=== PATIENT | female | born 1965 | race Caucasian/White ===

== ENCOUNTER 2018-04-01 18:55 | Observation (INO) ==
[2018-04-01 19:48] LABS: Basophils # 0.1 K/mm3 (0-0.2); Basophils % 0.8 % (0.1-2.0); Eosinophils # 0.1 K/mm3 (0.0-0.4); Eosinophils % 1.5 % (0.1-12.0); Hematocrit 46.5 % (37.0-47.0); Hemoglobin 15.2 g/dL (12.2-16.2); Lymphocytes # 3.2 K/mm3 (0.7-4.5); Lymphocytes % 42.4 % (10-50); Mean Corpuscular HGB Conc 32.6 g/dL (31.8-35.4); Mean Corpuscular Hemoglobin 29.6 pg (27.0-31.2); Mean Corpuscular Volume 90.8 fl (81-99); Mean Platelet Volume 7.4 fl (7.4-10.4); Monocytes # 0.7 K/mm3 (0.1-1.0); Monocytes % 8.5 % (1.7-9.3); Neutrophils # 3.6 K/mm3 (1.8-7.8); Neutrophils % 46.9 % (37.0-80.0); Platelet Count 337 K/mm3 (142-424); Red Blood Count 5.12 M/mm3 (4.20-5.40); Red Cell Distribution Width 14.1 % (11.5-17.5); White Blood Count 7.6 K/mm3 (4.8-10.8)
[2018-04-01 20:00] LABS: Microscopic, Urine URINE MICROSCOPIC (MICROSCOPIC)
[2018-04-01 20:04] LABS: Appearance,Urine CLEAR (Clear); Bilirubin,Urine Negative (Negative); Blood, Urine TRACE-I (Negative); Color,Urine YELLOW (Yellow); Glucose,Urine (UA) Negative (Negative); Ketones,Urine Negative (Negative); Leukocyte Esterase,Urine TRACE (Negative); Protein,Urine Negative (Negative); Specific Gravity, Urine >= 1.030 (1.005-1.030); Urobilinogen,Urine 0.2 EU/dl (0.2)
[2018-04-01 20:04] LABS: Alanine Aminotransferase 34 U/L (12-78); Albumin Level 3.6 gm/dL (3.4-5.0); Albumin/Globulin Ratio 0.8 (1.1-1.8); Alkaline Phosphatase 118 U/L (46-116); Anion Gap 14.4 mEq/L (5-15); Aspartate Amino Transferase 17 U/L (15-37); Bilirubin,Total 0.4 mg/dL (0.2-1.0); Blood Urea Nitrogen 17 mg/dL (7-18); Calcium 8.7 mg/dL (8.5-10.1); Carbon Dioxide 25 mmol/L (21.0-32.0); Chloride 106 mmol/L (98-107); Globulin 4.4 gm/dl (1.3-3.2); Glucose 104 mg/dL (74-106); Potassium 3.4 mmoL/L (3.5-5.1); Sodium 142 mmol/L (136-145)
--- NOTE | 2018-04-01 20:15 | Emergency Department Note ---
ED Disposition Clinical Impression: Heart palpitations Chest pain Qualifiers: Chest pain type: precordial pain Qualified Code(s): R07.2 - Precordial pain Disposition: Admitted as Observation Condition on Discharge: Good Referrals: Marvel Egan MD [Primary Care Provider] - - Critical Care Critical Care Time: No Attestation: On 04/01/18, the high probability of a clinically significant, sudden or life threatening deterioration of the following system(s) required my full and direct attention, intervention and personal management. The time I documented below is in addition to time spent performing reported procedures but includes the following listed in this critical care notation. Medical Decision Making - Medical Records Medical records reviewed: Yes: I reviewed the patient's medical records. - [place] Inquiry Pt receiving controlled substance: No Vital Signs: 04/01/18 19:06 04/01/18 19:17 04/01/18 19:31 Temperature 98.6 F 98.3 F Temperature Source Oral Oral Pulse Rate [Right Brachial] 115 H 108 H 101 H Respiratory Rate 22 18 18 Blood Pressure [Right Arm] 188/107 H 147/92 H 141/71 H Blood Pressure Mean [Right Arm] 134 110 94 Blood Pressure Source [Right Arm] Automatic Cuff Automatic Cuff Automatic Cuff Blood Pressure Position [Right Arm] Sitting Supine 02 Sat by Pulse Oximetry 99 98 98 Oxygen Delivery Method Room Air Room Air Room Air 04/01/18 20:00 Temperature Temperature Source Pulse Rate [Right Brachial] 116 H Respiratory Rate 18 Blood Pressure [Right Arm] 152/92 H Blood Pressure Mean [Right Arm] 112 Blood Pressure Source [Right Arm] Automatic Cuff Blood Pressure Position [Right Arm] Supine 02 Sat by Pulse Oximetry 98 Oxygen Delivery Method Room Air - Lab Data Lab results reviewed: Yes: I reviewed the patient's lab results. Lab Results 04/01/18 19:38: Sodium 142, Potassium 3.4 L, Chloride 106, Carbon Dioxide 25, Anion Gap 14.4, BUN 17, Creatinine 0.83, Estimated Creat Clear 122, Estimated GFR 73, Est GFR ( Amer) 88, Glucose 104, Calcium 8.7, Total Bilirubin 0.4, AST 17, ALT 34, Alkaline Phosphatase 118 H, Troponin I < 0.02, Total Protein 8.0, Albumin 3.6, Globulin 4.4 H, Albumin/Globulin Ratio 0.8 L 04/01/18 19:38: WBC 7.6, RBC 5.12, Hgb 15.2, Hct 46.5, MCV 90.8, MCH 29.6, MCHC 32.6, RDW 14.1, Plt Count 337, MPV 7.4, Neut % (Auto) 46.9, Lymph % (Auto) 42.4, [place] % (Auto) 8.5, Eos % (Auto) 1.5, Baso % (Auto) 0.8, Neut # (Auto) 3.6, Lymph # (Auto) 3.2, [place] # (Auto) 0.7, Eos # (Auto) 0.1, Baso # (Auto) 0.1 04/01/18 19:56: Urine Color Yellow, Urine Appearance Clear, Urine pH 6.0, Ur Specific [place] >= 1.030, Urine Protein Negative, Urine Glucose (UA) Negative, Urine Ketones Negative, Urine Blood Trace-i, Urine Nitrate Negative, Urine Bilirubin Negative, Urine Urobilinogen 0.2, Ur Leukocyte Esterase Trace, Urine RBC Occasional, Urine WBC 20-50, Ur Squamous Epith Cells 20-50, Urine Bacteria 4+ Result diagrams: 04/01/18 19:38 04/01/18 19:38 Orders (Tests/Meds): ED MEDICATIONS Discontinued Medications Generic Name Dose Route Start Last Admin Trade Name Noel PRN Reason Stop Dose Admin Aspirin 324 mg 04/01/18 20:09 04/01/18 20:12 Aspirin 81mg Chewable Tablet PO 04/01/18 20:10 324 mg ONCE ONE Administration ORDERS Category Date Time Status XR chest 2V Stat Exams 04/01/18 19:31 Taken T4 (Thyroxine) Stat Lab 04/01/18 20:21 Ordered TSH [Thyroid Stimulating Hormone] Stat Lab 04/01/18 20:22 Ordered Urinalysis and Microscopic Stat Lab 04/01/18 19:56 Ordered Urine Culture Stat Micro 04/01/18 19:56 Received ECG Request by /Gopal Stat Y 04/01/18 19:30 Ordered - Radiology Data #1 Image(s): Chest Image Reviewed: Yes I reviewed the patient's radiology image Preliminary Findings: Normal/NAD - ECG Data Tracing #1 I reviewed this ECG and interpreted as documented below: Normal Sinus Rhythm: Yes Ischemic changes: non-specific ST-T wave changes - Physician Consults Physician Consulted: tiffany Reason -: Admission Chest Pain HPI - General Chief Complaint: Chest Pain Stated Complaint: Irregular Heart Rate Time Seen by Provider: 04/01/18 20:00 Mode of Arrival: Ambulatory Source of Information: Patient Limitations: No Limitations Description of Symptoms (Recalled from ER Triage Doc. by RN): Pt states she has been having chest tightness, thought she was going to pass out. 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 She states this started this morning, by lunch she was better and then this evening starting having chest tightness again. She called her PCP and was told to go to [facility]. She states a mild SOA but denies any cough, recent cold, fever or other symptoms. - History of Present Illness HPI narrative: pt with chest tightness and palpitation today with feeling of irreg and near syncope - MD complaint: chest pain indicative of cardiac Onset (ago): hour(s) Duration: now resolved Pain location: substernal Severity: moderate Quality: tightness Risk Factors for CAD: Hypertension, Hypercholesterolemia, Family Hx of CAD Treatments prior to or on arrival for Cardiac Chest Pain: beta blockers - ALYSSA Score Non-Stemi Age of patient: Less than 65 yrs Number of risk factors for CAD: Presence of 3 or more Prior coronary artery stenosis(seen in coronary angiography): Less than 50% ST-Segment deviation on ECG (more than 1 min): Absent Prior aspirin intake: No ASA in the last 7 days Severe anginal chest pain: No or one episode in last 24 hours Elevated cardiac markers(CK-MB or troponin): Absent Non-Stemi Risk Score: 1 - Related Data On Oral Contraceptives: No Home Medications Medication Instructions Recorded Confirmed Amlodipine Besylate 10 mg PO DAILY 02/27/18 04/01/18 Metoprolol Succinate [Metoprolol 100 mg PO DAILY 02/27/18 04/01/18 Succinate 200mg Tablet] paroxetine 40 mg tablet 40 mg PO DAILY 02/27/18 04/01/18 Lisinopril [Lisinopril 10mg Tab] 10 mg PO DAILY 04/01/18 04/01/18 Allergies Allergy/AdvReac Type Severity Reaction Status Date / Time oxycodone [From PERCOCET] Allergy Intermediate I-ITCHING Verified 02/27/18 17:47 cyclobenzaprine Allergy Verified 04/01/18 19:26 [From Flexeril] [facility] History I have reviewed the patient's past medical history: Yes - Social History Alcohol Intake: never - Psychiatric History Expresses thoughts of harming self/others: None Suicide Plan Description: No Plan ROS Obtained: Yes All systems reviewed & no additional complaints - Constitutional Constitutional: Denies fever(s) - Eyes Eyes: Denies change in vision - ENT Ears, Nose, Mouth, and Throat: Denies headache(s) - Cardiovascular Cardiovascular: Reports chest pain, Reports irregular heart rhythm, Reports rapid heart rate - Respiratory Respiratory: No cough - Gastrointestinal Gastrointestingal: Denies: abdominal pain - Genitourinary Female Genitourinary: Denies hematuria - Musculoskeletal Musculoskeletal: Denies joint swelling - Integumentary/Breasts Skin/Breast: Denies rash - Neurologic Neurologic: Denies seizure-like activity Physical Exam - General General appearance: alert - Head Head exam: normocephalic - Eye Eye exam: Present: PERRL, EOMI - ENT ENT exam: Present: mucous membranes moist - Neck Neck exam: Present: trachea midline - Respiratory Respiratory exam: Present: normal lung sounds bilaterally. Absent: respiratory distress - Cardiovascular Cardiovascular exam: Present: tachycardia, systolic murmur - Abdominal Exam Abdominal exam: Present: soft - Extremities Exam Extremities exam: Absent: calf tenderness - Neurological Exam Neurological exam: Present: alert, oriented X3, CN II-XII intact - Psychiatric Psychiatric exam: Present: normal affect - Skin Skin exam: Absent: rash
[2018-04-01 20:24] LABS: WBC,Urine 20-50 #/hpf (0-3)
[2018-04-01 20:25] LABS: Bacteria,Urine 4+ /lpf; RBC,Urine Occasional #/hpf (0-3); Squamous Epithelial Cell,Urine 20-50 #/hpf (0-5)
[2018-04-01 20:58] LABS: T4 (Thyroxine) 8.6 ug/dl (4.7-13.3); Thyroid Stimulating Hormone 2.32 uIU/ml (0.358-3.740)
[2018-04-02 05:55] LABS: Basophils # 0.1 K/mm3 (0-0.2); Basophils % 0.9 % (0.1-2.0); Eosinophils # 0.1 K/mm3 (0.0-0.4); Eosinophils % 2.1 % (0.1-12.0); Hematocrit 40.7 % (37.0-47.0); Lymphocytes # 2.6 K/mm3 (0.7-4.5); Lymphocytes % 42.9 % (10-50); Mean Corpuscular HGB Conc 31.7 g/dL (31.8-35.4); Mean Corpuscular Hemoglobin 28.8 pg (27.0-31.2); Mean Corpuscular Volume 90.8 fl (81-99); Mean Platelet Volume 7.6 fl (7.4-10.4); Monocytes # 0.5 K/mm3 (0.1-1.0); Monocytes % 8.1 % (1.7-9.3); Neutrophils # 2.8 K/mm3 (1.8-7.8); Platelet Count 269 K/mm3 (142-424); Red Blood Count 4.49 M/mm3 (4.20-5.40); Red Cell Distribution Width 14.1 % (11.5-17.5); White Blood Count 6.2 K/mm3 (4.8-10.8)
[2018-04-02 06:08] LABS: Anion Gap 13.4 mEq/L (5-15); Calcium 8.2 mg/dL (8.5-10.1); Chol/HDL Ratio 3.6 (1-3.5); Potassium 3.4 mmoL/L (3.5-5.1)
[2018-04-02 06:28] LABS: Hemoglobin 12.9 g/dL (12.2-16.2)
--- NOTE | 2018-04-02 07:40 | Pharmacy Consult Notes ---
[facility] Pharmacy VTE Monitoring - Patient Demographics Admission date: 04/01/18 Report Date: 04/02/18 Time: 07:40 Allergies/Adverse Reactions: Patient Allergies oxycodone [From PERCOCET] Allergy (Intermediate, Verified 02/27/18 17:47) I-ITCHING cyclobenzaprine [From Flexeril] Allergy (Verified 04/01/18 19:26) Height: 1.61 m Weight: 99.904 kg Patient Problems: Current Active Problems Chest pain (Acute) Heart palpitations (Acute) - VTE Risk Labs: VTE Related Lab Results Hgb 12.9 g/dL (12.2-16.2) D 04/02/18 05:30 Hct 40.7 % (37.0-47.0) 04/02/18 05:30 Plt Count 269 K/mm3 (142-424) 04/02/18 05:30 BUN 15 mg/dL (7-18) 04/02/18 05:30 Creatinine 0.71 mg/dL (0.55-1.02) 04/02/18 05:30 Estimated Creat Clear 150 mL/min (50-200) 04/02/18 05:30 Was VTE Risk Assessment Performed: No VTE Score: 2 VTE Risk Level: Low Risk - Prophylaxis VTE Prophylaxis Ordered?: Yes Types of VTE Prophylaxis: TEDS Knee High Location of Applied Device: Bilateral Lower Extremeties - VTE Diagnosis Confirmed Treatment or plan recommended: Continue Current Treatment
--- NOTE | 2018-04-02 07:55 | Consult Report ---
History of Present Illness Consult date: 04/02/18 Requesting physician: Marvel Egan Consult reason: chest pain Chief complaint: Chest pain, palpitations Additional Medical History:: 1. Hypertension 2. Remote history of normal cardiac catheterization approximately 10 years ago 3. Family history of coronary artery disease in her father. History of present illness: 52-year-old white female with history of hypertension was admitted for chest pain with SVT. Patient relates not feeling well yesterday at work with coworkers checking her heart rate and noting it to be in the 130-140 bpm range. Blood pressure noted to be slightly low. Patient did have some chest pressure and tightness when the heart rate was at fast. When the rate would slow down symptoms would resolve. She did have several episodes of rapid heart rate with chest pressure yesterday. She denies any syncope but does note that a lightheaded and dizzy at times. When symptoms recurred in the evening she came to the emergency department for further evaluation and was subsequently admitted. EKG shows sinus tachycardia with some nonspecific ST-T abnormalities. Patient had troponins overnight there were normal. Thyroid panel is normal. Cardiology consulted for evaluation recommendations. Patient does take 200 mg of Lopressor daily for blood pressure and heart rate control and denies missing any doses recently. Patient does relate a 30-40 pound weight gain over the last 6 months. [facility] History Medical History: Reports:: Hypertension Denies:: Cancer, Diabetes Mellitus Type 1, Diabetes Mellitus Type 2, Internal Pacemaker, MRSA Other Surgeries: Yes: Cardiac Catheterization. No: Pacemaker Amputation: No - *Social History Educational Level: Completed College Alcohol Intake: never Occupational Status: employed Housing: house Household Members: spouse, children - Psychiatric History Expresses thoughts of harming self/others: None Suicide Plan Description: No Plan *Family Hx:: Coronary Artery Disease Meds Home Medications Medication Instructions Recorded Confirmed Type Amlodipine Besylate 10 mg PO DAILY 02/27/18 04/01/18 History Metoprolol Succinate [Metoprolol 100 mg PO DAILY 02/27/18 04/02/18 History Succinate 200mg Tablet] paroxetine 40 mg tablet 40 mg PO DAILY 02/27/18 04/01/18 History Lisinopril [Lisinopril 10mg Tab] 10 mg PO DAILY 04/01/18 04/02/18 History Allergies Allergy/AdvReac Type Severity Reaction Status Date / Time oxycodone [From PERCOCET] Allergy Intermediate I-ITCHING Verified 02/27/18 17:47 cyclobenzaprine Allergy Verified 04/01/18 19:26 [From Flexeril] Review of Systems - *Cardiovascular Reports chest pain, Reports rapid, pounding, or irregular heartbeat - *Respiratory Denies shortness of breath - *Gastrointestinal Denies abdominal pain - *Genitourinary Denies blood in urine - *Musculoskeletal Denies joint pain - *Neurologic Denies headache(s), Denies seizure-like activity Exam Vital signs and Labs for Last 24 Hours: Temp Pulse Resp BP Pulse Ox 98.2 F 95 H 17 137/89 96 04/02/18 04:00 04/02/18 04:00 04/02/18 04:00 04/02/18 04:00 04/02/18 04:00 Laboratory Results - last 24 hr 04/01/18 19:38: Sodium 142, Potassium 3.4 L, Chloride 106, Carbon Dioxide 25, Anion Gap 14.4, BUN 17, Creatinine 0.83, Estimated Creat Clear 122, Estimated GFR 73, Est GFR ( Amer) 88, Glucose 104, Calcium 8.7, Total Bilirubin 0.4, AST 17, ALT 34, Alkaline Phosphatase 118 H, Troponin I < 0.02, Total Protein 8.0, Albumin 3.6, Globulin 4.4 H, Albumin/Globulin Ratio 0.8 L 04/01/18 19:38: WBC 7.6, RBC 5.12, Hgb 15.2, Hct 46.5, MCV 90.8, MCH 29.6, MCHC 32.6, RDW 14.1, Plt Count 337, MPV 7.4, Neut % (Auto) 46.9, Lymph % (Auto) 42.4, [place] % (Auto) 8.5, Eos % (Auto) 1.5, Baso % (Auto) 0.8, Neut # (Auto) 3.6, Lymph # (Auto) 3.2, [place] # (Auto) 0.7, Eos # (Auto) 0.1, Baso # (Auto) 0.1 04/01/18 19:38: TSH 2.32, Thyroxine (T4) 8.6 04/01/18 19:56: Urine Color Yellow, Urine Appearance Clear, Urine pH 6.0, Ur Specific [place] >= 1.030, Urine Protein Negative, Urine Glucose (UA) Negative, Urine Ketones Negative, Urine Blood Trace-i, Urine Nitrate Negative, Urine Bilirubin Negative, Urine Urobilinogen 0.2, Ur Leukocyte Esterase Trace, Urine RBC Occasional, Urine WBC 20-50, Ur Squamous Epith Cells 20-50, Urine Bacteria 4+ 04/01/18 23:15: Troponin I < 0.02 04/02/18 02:40: Troponin I < 0.02 04/02/18 05:30: WBC 6.2, RBC 4.49, Hgb 12.9 D, Hct 40.7, MCV 90.8, MCH 28.8, MCHC 31.7 L, RDW 14.1, Plt Count 269, MPV 7.6, Neut % (Auto) 46.0, Lymph % (Auto) 42.9, [place] % (Auto) 8.1, Eos % (Auto) 2.1, Baso % (Auto) 0.9, Neut # (Auto) 2.8, Lymph # (Auto) 2.6, [place] # (Auto) 0.5, Eos # (Auto) 0.1, Baso # (Auto) 0.1 04/02/18 05:30: Sodium 143, Potassium 3.4 L, Chloride 109 H, Carbon Dioxide 24, Anion Gap 13.4, BUN 15, Creatinine 0.71, Estimated Creat Clear 150, Estimated GFR 87, Est GFR ( Amer) 105, Glucose 95, Calcium 8.2 L, Magnesium 2.1, Triglycerides 50, Cholesterol 159, LDL Cholesterol 105, VLDL Cholesterol 10, HDL Cholesterol 44, Cholesterol/HDL Ratio 3.6 H I & O for Last 24 hours: Intake & Output 03/30/18 03/31/18 04/01/18 04/02/18 11:59 11:59 11:59 11:59 Weight 220 lb 4 oz - *Routine Neck Exam Present: supple. Absent: JVD, carotid bruit - *Routine Respiratory Exam Present: CTA bilaterally. Absent: accessory muscle use, rales, rhonchi, wheezes - *Routine Cardiovascular Exam Present: RRR. Absent: murmur, gallop, rubs - *Routine Abdominal Exam Present: soft. Absent: tenderness, distended, guarding - *Routine Extremities Exam Absent: edema, calf tenderness - *Routine Neurological Exam Present: alert, oriented X3, moving all extremities Assessment and Plan (1) Hypertension Current visit: Yes Status: Acute Category: Medical Code(s): I10 - Essential (primary) hypertension (2) Obesity (BMI 30-39.9) Current visit: Yes Status: Acute Category: Medical Code(s): E66.9 - Obesity, unspecified (3) Chest pain Current visit: Yes Status: Acute Qualifiers: Chest pain type: precordial pain Qualified Code(s): R07.2 - Precordial pain Category: Medical Code(s): R07.9 - Chest pain, unspecified (4) Heart palpitations Current visit: Yes Status: Acute Category: Medical Code(s): R00.2 - Palpitations - Assessment and plan all Dx Assessment and Plan for all problems:: 1. Recurrent chest pain with normal troponins and sinus tachycardia versus SVT. Patient has a ALYSSA score of 1 (recurrent chest pain) with history of hypertension. Recommend exercise Myoview today to assess for exercise-induced SVT (looking for atrial fibrillation) and to assess for coronary artery disease also. If atrial fibrillation documented, then recommend Xarelto or other anticoagulant therapy. 2. Also recommend obtaining an echocardiogram. 3. Consider switching her Lopressor to bisoprolol 10 mg daily for less fatigue side effect. 4. Further recommendations pending above results but if stress test is without ischemia then patient could be treated as an outpatient.
--- NOTE | 2018-04-02 09:07 | History & Physical Report ---
*Admission Date: 04/01/18 <Julia Sánchez 04/02/18 09:17> *Chief complaint: Rapid heart rate <Julia Sánchez 04/02/18 09:17> *History of present illness: 52-year-old white female with history of hypertension was admitted for chest pain with SVT. Patient relates not feeling well yesterday at work with coworkers checking her heart rate and noting it to be in the 130-140 bpm range. Blood pressure noted to be slightly low. Patient did have some chest pressure and tightness when the heart rate was at fast. When the rate would slow down symptoms would resolve. She did have several episodes of rapid heart rate with chest pressure yesterday. She denies any syncope but does note that a lightheaded and dizzy at times. When symptoms recurred in the evening she came to the emergency department for further evaluation and was subsequently admitted. EKG shows sinus tachycardia with some nonspecific ST-T abnormalities. Patient had troponins overnight there were normal. Thyroid panel is normal. Cardiology consulted for evaluation recommendations. Patient does take 200 mg of Lopressor daily for blood pressure and heart rate control and denies missing any doses recently. Patient does relate a 30-40 pound weight gain over the last 6 months. The above as per Italo Adams PA Time of this exam patient is comfortable. She feels her heart is beating regularly and under control. She is n.p.o. for stress test this morning. <Julia Sánchez 04/02/18 09:17> [facility] History Medical History: Reports:: Arrhythmia, Gastroesophageal Reflux Disease(GERD), Hypertension, Palpitations Denies:: Atherosclerotic Heart Disease, Atrial Fibrillation, Cancer, Cardiomyopathy, Congestive Heart Failure, Chronic Obstructive Pulmonary Disease (COPD), Coronary Artery Disease, Diabetes Mellitus Type 1, Diabetes Mellitus Type 2, Gastrointestinal Bleed, Internal Pacemaker, Lung Disease, Kidney Stones, MRSA, Myocardial Infarction, Seizures <Julia Sánchez 04/02/18 09:17> Other Medical History: Reports: Arthritis. Denies: Hypothyroidism <PrincessJulia 04/02/18 09:17> Other Surgeries: Yes: Cardiac Catheterization, Tubal Ligation. No: Pacemaker <Julia Sánchez 04/02/18 09:17> Amputation: No <Julia Sánchez 04/02/18 09:17> Comment: Breast augmentation <Julia Sánchez 04/02/18 09:17> - *Social History Educational Level: Completed College <Julia Sánchez 04/02/18 09:17> Alcohol Intake: never <Julia Sánchez 04/02/18 09:17> Occupational Status: employed <Julia Sánchez 04/02/18 09:17> Housing: house <Julia Sánchez 04/02/18 09:17> Household Members: spouse, children <Julia Sánchez 04/02/18 09:17> - Psychiatric History Expresses thoughts of harming self/others: None <Julia Sánchez 04/02/18 09:17> Suicide Plan Description: No Plan <Julia Sánchez 04/02/18 09:17> *Family Hx:: Coronary Artery Disease, Hypertension <Julia Sánchez 04/02/18 09:17> Review of Systems - Constitutional Reports weight gain, Denies chills <Edna Sánchezhy 04/02/18 09:17> - ENT Reports dizziness, Denies ear pain, Denies nasal congestion, Denies sore throat <Edna Sánchezhy 04/02/18 09:17> - *Cardiovascular Reports chest pain, Reports shortness of breath, Reports irregular heart rhythm, Reports fast heart rate, Denies leg swelling <Edna Sánchezhy 04/02/18 09:17> - *Respiratory Reports shortness of breath, Denies chest congestion, Denies cough <Edna Sánchezhy 04/02/18 09:17> - *Gastrointestinal Reports heartburn, Denies abdominal pain, Denies change in bowel habits, Denies change in stools, Denies constipation, Denies incontinent of stools, Denies vomiting blood, Denies black, tarry stools <[facility] 04/02/18 09:17> - *Genitourinary Denies difficulty urinating <[facility] 04/02/18 09:17> - *Musculoskeletal Reports joint pain (Bilateral knees and hips) <SánchezJulia - 04/02/18 09:17> - *Neurologic Reports dizziness, Denies abnormal walking, Denies seizure-like activity, Denies headache(s), Denies seizure-like activity <Julia Sánchez - 04/02/18 09:17> - Psychiatric Reports depression <Julia Sánchez - 04/02/18 09:17> Meds Home Medications Medication Instructions Recorded Confirmed Type Amlodipine Besylate 10 mg PO DAILY 02/27/18 04/01/18 History Metoprolol Succinate [Metoprolol 100 mg PO DAILY 02/27/18 04/02/18 History Succinate 200mg Tablet] paroxetine 40 mg tablet 40 mg PO DAILY 02/27/18 04/01/18 History Lisinopril [Lisinopril 10mg Tab] 10 mg PO DAILY 04/01/18 04/02/18 History <Marvel Egan - 04/02/18 09:26> Allergies Allergy/AdvReac Type Severity Reaction Status Date / Time oxycodone [From PERCOCET] Allergy Intermediate I-ITCHING Verified 02/27/18 17:47 cyclobenzaprine Allergy Verified 04/01/18 19:26 [From Flexeril] <Marvel Egan - 04/02/18 09:26> Exam Vital signs and Labs for Last 24 Hours: Temp Pulse Resp BP Pulse Ox 98.2 F 104 H 16 138/80 98 04/02/18 08:00 04/02/18 08:00 04/02/18 08:00 04/02/18 08:00 04/02/18 08:00 Laboratory Results - last 24 hr 04/01/18 19:38: Sodium 142, Potassium 3.4 L, Chloride 106, Carbon Dioxide 25, Anion Gap 14.4, BUN 17, Creatinine 0.83, Estimated Creat Clear 122, Estimated GFR 73, Est GFR ( Amer) 88, Glucose 104, Calcium 8.7, Total Bilirubin 0.4, AST 17, ALT 34, Alkaline Phosphatase 118 H, Troponin I < 0.02, Total Protein 8.0, Albumin 3.6, Globulin 4.4 H, Albumin/Globulin Ratio 0.8 L 04/01/18 19:38: WBC 7.6, RBC 5.12, Hgb 15.2, Hct 46.5, MCV 90.8, MCH 29.6, MCHC 32.6, RDW 14.1, Plt Count 337, MPV 7.4, Neut % (Auto) 46.9, Lymph % (Auto) 42.4, [place] % (Auto) 8.5, Eos % (Auto) 1.5, Baso % (Auto) 0.8, Neut # (Auto) 3.6, Lymph # (Auto) 3.2, [place] # (Auto) 0.7, Eos # (Auto) 0.1, Baso # (Auto) 0.1 04/01/18 19:38: TSH 2.32, Thyroxine (T4) 8.6 04/01/18 19:56: Urine Color Yellow, Urine Appearance Clear, Urine pH 6.0, Ur Specific [place] >= 1.030, Urine Protein Negative, Urine Glucose (UA) Negative, Urine Ketones Negative, Urine Blood Trace-i, Urine Nitrate Negative, Urine Bilirubin Negative, Urine Urobilinogen 0.2, Ur Leukocyte Esterase Trace, Urine RBC Occasional, Urine WBC 20-50, Ur Squamous Epith Cells 20-50, Urine Bacteria 4+ 04/01/18 23:15: Troponin I < 0.02 04/02/18 02:40: Troponin I < 0.02 04/02/18 05:30: WBC 6.2, RBC 4.49, Hgb 12.9 D, Hct 40.7, MCV 90.8, MCH 28.8, MCHC 31.7 L, RDW 14.1, Plt Count 269, MPV 7.6, Neut % (Auto) 46.0, Lymph % (Auto) 42.9, [place] % (Auto) 8.1, Eos % (Auto) 2.1, Baso % (Auto) 0.9, Neut # (Auto) 2.8, Lymph # (Auto) 2.6, [place] # (Auto) 0.5, Eos # (Auto) 0.1, Baso # (Auto) 0.1 04/02/18 05:30: Sodium 143, Potassium 3.4 L, Chloride 109 H, Carbon Dioxide 24, Anion Gap 13.4, BUN 15, Creatinine 0.71, Estimated Creat Clear 150, Estimated GFR 87, Est GFR ( Amer) 105, Glucose 95, Calcium 8.2 L, Magnesium 2.1, Triglycerides 50, Cholesterol 159, LDL Cholesterol 105, VLDL Cholesterol 10, HDL Cholesterol 44, Cholesterol/HDL Ratio 3.6 H <JulisaMarvel - 04/02/18 09:26> Temp Pulse Resp BP Pulse Ox 98.2 F 104 H 16 138/80 98 04/02/18 08:00 04/02/18 08:00 04/02/18 08:00 04/02/18 08:00 04/02/18 08:00 Laboratory Results - last 24 hr 04/01/18 19:38: Sodium 142, Potassium 3.4 L, Chloride 106, Carbon Dioxide 25, Anion Gap 14.4, BUN 17, Creatinine 0.83, Estimated Creat Clear 122, Estimated GFR 73, Est GFR ( Amer) 88, Glucose 104, Calcium 8.7, Total Bilirubin 0.4, AST 17, ALT 34, Alkaline Phosphatase 118 H, Troponin I < 0.02, Total Protein 8.0, Albumin 3.6, Globulin 4.4 H, Albumin/Globulin Ratio 0.8 L 04/01/18 19:38: WBC 7.6, RBC 5.12, Hgb 15.2, Hct 46.5, MCV 90.8, MCH 29.6, MCHC 32.6, RDW 14.1, Plt Count 337, MPV 7.4, Neut % (Auto) 46.9, Lymph % (Auto) 42.4, [place] % (Auto) 8.5, Eos % (Auto) 1.5, Baso % (Auto) 0.8, Neut # (Auto) 3.6, Lymph # (Auto) 3.2, [place] # (Auto) 0.7, Eos # (Auto) 0.1, Baso # (Auto) 0.1 04/01/18 19:38: TSH 2.32, Thyroxine (T4) 8.6 04/01/18 19:56: Urine Color Yellow, Urine Appearance Clear, Urine pH 6.0, Ur Specific [place] >= 1.030, Urine Protein Negative, Urine Glucose (UA) Negative, Urine Ketones Negative, Urine Blood Trace-i, Urine Nitrate Negative, Urine Bilirubin Negative, Urine Urobilinogen 0.2, Ur Leukocyte Esterase Trace, Urine RBC Occasional, Urine WBC 20-50, Ur Squamous Epith Cells 20-50, Urine Bacteria 4+ 04/01/18 23:15: Troponin I < 0.02 04/02/18 02:40: Troponin I < 0.02 04/02/18 05:30: WBC 6.2, RBC 4.49, Hgb 12.9 D, Hct 40.7, MCV 90.8, MCH 28.8, MCHC 31.7 L, RDW 14.1, Plt Count 269, MPV 7.6, Neut % (Auto) 46.0, Lymph % (Auto) 42.9, [place] % (Auto) 8.1, Eos % (Auto) 2.1, Baso % (Auto) 0.9, Neut # (Auto) 2.8, Lymph # (Auto) 2.6, [place] # (Auto) 0.5, Eos # (Auto) 0.1, Baso # (Auto) 0.1 04/02/18 05:30: Sodium 143, Potassium 3.4 L, Chloride 109 H, Carbon Dioxide 24, Anion Gap 13.4, BUN 15, Creatinine 0.71, Estimated Creat Clear 150, Estimated GFR 87, Est GFR ( Amer) 105, Glucose 95, Calcium 8.2 L, Magnesium 2.1, Triglycerides 50, Cholesterol 159, LDL Cholesterol 105, VLDL Cholesterol 10, HDL Cholesterol 44, Cholesterol/HDL Ratio 3.6 H <Julia Sánchez - 04/02/18 09:17> I & O for Last 24 hours: Intake & Output 03/30/18 03/31/18 04/01/18 04/02/18 11:59 11:59 11:59 11:59 Weight 220 lb 4 oz <Wright,Marvel - 04/02/18 09:26> Intake & Output 03/30/18 03/31/18 04/01/18 04/02/18 11:59 11:59 11:59 11:59 Weight 220 lb 4 oz <Julia Sánchez - 04/02/18 09:17> Radiology Reports for the Last 24 Hours: 04/01/2018 chest x-ray IMPRESSION: Negative chest, no acute finding <Julia Sánchez 04/02/18 09:17> - Constitutional no acute distress <Julia Sánchez 04/02/18 09:17> Comments: Sitting up in the bed and appears comfortable. Breathing is easy. <Julia Sánchez 04/02/18 09:17> - *Routine HEENT Exam Head: Present: normocephalic, atraumatic <Julia Sánchez 04/02/18 09:17> Eye: Present: PERRL <Julia Sánchez 04/02/18 09:17> ENT: Present: mucous membranes moist, oropharynx clear <[facility] 04/02/18 09:17> - *Routine Neck Exam Present: supple. Absent: carotid bruit, lymphadenopathy, thyromegaly <Julia Sánchez 04/02/18 09:17> - *Routine Respiratory Exam Present: CTA bilaterally (Anteriorly and posteriorly) <[facility] 04/02/18 09:17> - *Routine Cardiovascular Exam Present: RRR [facility] 04/02/18 09:17> Comments: Sinus rhythm on monitor <[facility] 04/02/18 09:17> - *Routine Abdominal Exam Present: soft, normoactive bowel sounds. Absent: tenderness, distended <[facility] 04/02/18 09:17> - *Routine Extremities Exam Present: pulses intact. Absent: edema, calf tenderness <[facility] 04/02/18 09:17> - *Routine Neurological Exam Present: alert, oriented X3 <Sánchez,[facility] 04/02/18 09:17> Assessment and Plan (1) Hypertension Current visit: Yes Status: Acute Category: Medical Code(s): I10 - Essential (primary) hypertension (2) Obesity (BMI 30-39.9) Current visit: Yes Status: Acute Category: Medical Code(s): E66.9 - Obesity, unspecified (3) Chest pain Current visit: Yes Status: Acute Qualifiers: Chest pain type: precordial pain Qualified Code(s): R07.2 - Precordial pain Category: Medical Code(s): R07.9 - Chest pain, unspecified (4) Heart palpitations Current visit: Yes Status: Acute Category: Medical Code(s): R00.2 - Palpitations <WrightMarvel - 04/02/18 09:26> (1) Hypertension Current visit: Yes Status: Acute Category: Medical Code(s): I10 - Essential (primary) hypertension (2) Obesity (BMI 30-39.9) Current visit: Yes Status: Acute Category: Medical Code(s): E66.9 - Obesity, unspecified (3) Chest pain Current visit: Yes Status: Acute Qualifiers: Chest pain type: precordial pain Qualified Code(s): R07.2 - Precordial pain Category: Medical Code(s): R07.9 - Chest pain, unspecified (4) Heart palpitations Current visit: Yes Status: Acute Category: Medical Code(s): R00.2 - Palpitations <Julia Sánchez - 04/02/18 09:03> - Assessment and plan all Dx Assessment and Plan for all problems:: Saw patient, agree with above note. <Marvel Egan - 04/02/18 09:26> Patient has been seen by cardiology and will have a stress test this morning. <Julia Sánchez - 04/02/18 09:17>
--- NOTE | 2018-04-02 17:02 | Progress Note ---
Internal Medicine - PN: Subj *Date: 04/02/18 *Time: 17:00 Interval history: Patient feels well, had stress test, wants to go home. Exam Vital signs and Labs for Last 24 Hours: Temp Pulse Resp BP Pulse Ox 97.8 F 82 20 139/90 97 04/02/18 15:46 04/02/18 15:46 04/02/18 15:46 04/02/18 15:46 04/02/18 15:46 Laboratory Results - last 24 hr 04/01/18 19:38: Sodium 142, Potassium 3.4 L, Chloride 106, Carbon Dioxide 25, Anion Gap 14.4, BUN 17, Creatinine 0.83, Estimated Creat Clear 122, Estimated GFR 73, Est GFR ( Amer) 88, Glucose 104, Calcium 8.7, Total Bilirubin 0.4, AST 17, ALT 34, Alkaline Phosphatase 118 H, Troponin I < 0.02, Total Protein 8.0, Albumin 3.6, Globulin 4.4 H, Albumin/Globulin Ratio 0.8 L 04/01/18 19:38: WBC 7.6, RBC 5.12, Hgb 15.2, Hct 46.5, MCV 90.8, MCH 29.6, MCHC 32.6, RDW 14.1, Plt Count 337, MPV 7.4, Neut % (Auto) 46.9, Lymph % (Auto) 42.4, [place] % (Auto) 8.5, Eos % (Auto) 1.5, Baso % (Auto) 0.8, Neut # (Auto) 3.6, Lymph # (Auto) 3.2, [place] # (Auto) 0.7, Eos # (Auto) 0.1, Baso # (Auto) 0.1 04/01/18 19:38: TSH 2.32, Thyroxine (T4) 8.6 04/01/18 19:56: Urine Color Yellow, Urine Appearance Clear, Urine pH 6.0, Ur Specific [place] >= 1.030, Urine Protein Negative, Urine Glucose (UA) Negative, Urine Ketones Negative, Urine Blood Trace-i, Urine Nitrate Negative, Urine Bilirubin Negative, Urine Urobilinogen 0.2, Ur Leukocyte Esterase Trace, Urine RBC Occasional, Urine WBC 20-50, Ur Squamous Epith Cells 20-50, Urine Bacteria 4+ 04/01/18 23:15: Troponin I < 0.02 04/02/18 02:40: Troponin I < 0.02 04/02/18 05:30: WBC 6.2, RBC 4.49, Hgb 12.9 D, Hct 40.7, MCV 90.8, MCH 28.8, MCHC 31.7 L, RDW 14.1, Plt Count 269, MPV 7.6, Neut % (Auto) 46.0, Lymph % (Auto) 42.9, [place] % (Auto) 8.1, Eos % (Auto) 2.1, Baso % (Auto) 0.9, Neut # (Auto) 2.8, Lymph # (Auto) 2.6, [place] # (Auto) 0.5, Eos # (Auto) 0.1, Baso # (Auto) 0.1 04/02/18 05:30: Sodium 143, Potassium 3.4 L, Chloride 109 H, Carbon Dioxide 24, Anion Gap 13.4, BUN 15, Creatinine 0.71, Estimated Creat Clear 150, Estimated GFR 87, Est GFR ( Amer) 105, Glucose 95, Calcium 8.2 L, Magnesium 2.1, Triglycerides 50, Cholesterol 159, LDL Cholesterol 105, VLDL Cholesterol 10, HDL Cholesterol 44, Cholesterol/HDL Ratio 3.6 H I & O for Last 24 hours: Intake & Output 03/31/18 04/01/18 04/02/18 04/03/18 11:59 11:59 11:59 11:59 Intake Total 632 / 632 Balance 632 / 632 Weight 220 lb 4 oz Narrative: Cardiac stress test normal, case discussed with Cardiology. They are OK with discharging patient on Bisoprolol. Assessment and Plan (1) Hypertension Current visit: Yes Status: Acute Category: Medical Code(s): I10 - Essential (primary) hypertension (2) Obesity (BMI 30-39.9) Current visit: Yes Status: Acute Category: Medical Code(s): E66.9 - Obesity, unspecified (3) Chest pain Current visit: Yes Status: Acute Qualifiers: Chest pain type: precordial pain Qualified Code(s): R07.2 - Precordial pain Category: Medical Code(s): R07.9 - Chest pain, unspecified (4) Heart palpitations Current visit: Yes Status: Acute Category: Medical Code(s): R00.2 - Palpitations - Assessment and plan all Dx Assessment and Plan for all problems:: Discharge home now, f/u in office next week.
--- NOTE | 2018-04-06 21:41 | Discharge Summary ---
General - General Admission date:: 04/01/18 Discharge date: 04/02/18 HPI HPI: 52-year-old white female with history of hypertension was admitted for chest pain with SVT. Patient relates not feeling well yesterday at work with coworkers checking her heart rate and noting it to be in the 130-140 bpm range. Blood pressure noted to be slightly low. Patient did have some chest pressure and tightness when the heart rate was at fast. When the rate would slow down symptoms would resolve. She did have several episodes of rapid heart rate with chest pressure yesterday. She denies any syncope but does note being lightheaded and dizzy at times. When symptoms recurred in the evening, she came to the emergency department for further evaluation and was subsequently admitted. EKG shows sinus tachycardia with some nonspecific ST-T abnormalities. Patient had troponins overnight that were normal. Thyroid panel is normal. Cardiology consulted for evaluation recommendations. Patient does take 200 mg of Lopressor daily for blood pressure and heart rate control and denies missing any doses recently. Patient does relate a 30-40 pound weight gain over the last 6 months. The above as per Italo VICTORIA At the time of this exam patient is comfortable. She feels her heart is beating regularly and under control. She is n.p.o. for stress test this morning. Hospital Course Hospital Course: The patient had her stress test and it was normal. She was stable to be discharged home on bisoprolol. Objective Vital signs: Temp Pulse Resp BP Pulse Ox 97.8 F 100 H 20 139/90 97 04/02/18 15:46 04/02/18 16:00 04/02/18 15:46 04/02/18 15:46 04/02/18 15:46 Narrative: - Constitutional no acute distress Comments: Sitting up in the bed and appears comfortable. Breathing is easy. - *Routine HEENT Exam Head: Present: normocephalic, atraumatic Eye: Present: PERRL ENT: Present: mucous membranes moist, oropharynx clear - *Routine Neck Exam Present: supple. Absent: carotid bruit, lymphadenopathy, thyromegaly - *Routine Respiratory Exam Present: CTA bilaterally (Anteriorly and posteriorly) - *Routine Cardiovascular Exam Present: RRR Comments: Sinus rhythm on monitor - *Routine Abdominal Exam Present: soft, normoactive bowel sounds. Absent: tenderness, distended - *Routine Extremities Exam Present: pulses intact. Absent: edema, calf tenderness - *Routine Neurological Exam Present: alert, oriented X3 DS: Diagnosis - Discharge Diagnosis (1) Hypertension Status: Acute (2) Obesity (BMI 30-39.9) Status: Acute (3) Chest pain Status: Acute (4) Heart palpitations Status: Acute Discharge Plan - Patient Discharge Instructions ACTIVITY: Continue current activity DIET: continue same diet Patient Instructions: DI for Chest Pain - Follow up Plan Follow up with: Marvel Egan MD [Primary Care Provider] - 1 week Disposition: Home, Self-Jail Medications: Home Medications Medication Instructions Recorded Confirmed Type Amlodipine Besylate 5 mg PO DAILY 02/27/18 04/02/18 History paroxetine 40 mg tablet 40 mg PO DAILY 02/27/18 04/01/18 History Lisinopril [Lisinopril 10mg Tab] 10 mg PO DAILY 04/01/18 04/02/18 History Aspirin [Aspirin 81mg chewable 81 mg PO DAILY 04/02/18 04/02/18 History tab] Prescriptions/Medication Reconciliation: New Bisoprolol Fumarate [Bisoprolol 10mg Tablet] 10 mg PO BID #60 tab Continue paroxetine 40 mg tablet 40 mg PO DAILY Amlodipine Besylate 5 mg PO DAILY Aspirin [Aspirin 81mg chewable tab] 81 mg PO DAILY Lisinopril [Lisinopril 10mg Tab] 10 mg PO DAILY Discontinued Metoprolol Succinate [Metoprolol Succinate 200mg Tablet] 200 mg PO DAILY
== END 2018-04-02 17:55 | disposition home or self-care (01) ==
LOC: 2ND 18:55 → UTC 18:55 → 2ND 21:20
PROVIDERS: ADMIT Family Medicine; ATTEND Family Medicine

== ENCOUNTER → 2018-04-16 09:41 | Outpatient (CLI) | payer OTHER, SELFPAY | PROVIDERS: PCP Family Medicine; Visit Provider Family Medicine | DX: R00.2 Palpitations (principal) | CPT/HCPCS: 93225; 93226 ==

== ENCOUNTER → 2018-12-06 10:56 | Outpatient (CLI) | payer OTHER, SELFPAY ==
--- NOTE | 2018-12-06 11:01 | XR_ITS ---
XR shoulder LT min 2V HISTORY: ITS.REASON: LT SHOULDER PAIN AND WEAKNESS ORDERING PHYSICIAN: Marian Anderson APRN PATIENT AGE: 53 years Comparison: None FINDINGS: No fracture or dislocation. No lytic or blastic change. There is normal mineralization. The joint spaces are well-preserved. No significant degenerative/arthritic changes. No erosive changes evident. IMPRESSION: Negative, no acute finding
== END ==
PROVIDERS: PCP Family Medicine; Visit Provider Nurse Practitioner Family
DX: M25.512 Pain in left shoulder (principal); M62.81 Muscle weakness (generalized)
CPT/HCPCS: 73030

== ENCOUNTER → 2019-04-14 12:53 | Outpatient (CLI) | payer OTHER, SELFPAY ==
--- NOTE | 2019-04-14 13:01 | US_ITS ---
PROCEDURE: US THYROID CLINICAL INDICATION: THYROMEGALY COMPARISON: No exams were available for comparison FINDINGS: Right lobe: 3.8 x 1.4 x 1.7 cm. Homogeneous echogenicity. There is question of a is 7 mm isoechoic nodule superiorly. This however is not well demonstrated in both planes and may only be due to an area of heterogeneous echogenicity. Left lobe: 3.3 x 1.1 x 1.7 cm with homogeneous echogenicity. Isthmus: Mildly prominent at 4 mm. Additional findings: IMPRESSION: Questionable nodule superior pole on the right. Recommend six-month follow-up otherwise negative Dictated by: Patrick Cuellar MD 04/15/2019 08:09 Electronically signed by Patrick Cuellar MD in [place] 04/15/2019 08:09
== END ==
PROVIDERS: PCP Family Medicine; Visit Provider Nurse Practitioner Family
DX: E01.0 Iodine-deficiency related diffuse (endemic) goiter (principal)
CPT/HCPCS: 76536

== ENCOUNTER → 2019-05-02 14:47 | Outpatient (CLI) | payer OTHER, SELFPAY | PROVIDERS: PCP Nurse Practitioner Family; Visit Provider Nurse Practitioner Family | DX: G47.30 Sleep apnea, unspecified (principal); R40.0 Somnolence; R51 Headache; R06.83 Snoring | CPT/HCPCS: 95806 ==

== ENCOUNTER → 2019-08-18 14:23 | Outpatient (CLI) | payer OTHER, SELFPAY ==
--- NOTE | 2019-08-18 14:32 | XR_ITS ---
PROCEDURE: XR CHEST AP CLINICAL HISTORY: SOB COMPARISON: CXR1 CHEST-PORTABLE from 05/20/2015 CXR CHEST(2 VIEWS-NOT PORTABLE) from 08/07/2016 CXR2V XR chest 2V from 04/01/2018 FINDINGS: The cardiomediastinal silhouette and pulmonary vascularity are within normal limits. The lungs are clear without infiltrates, suspicious nodules, or pleural effusions. There is faint density at the cardiac apex on the left and may be due to summation artifact and may be confirmed with follow-up PA and lateral chest. No acute bony findings. IMPRESSION: No acute findings. Dictated by: Patrick Cuellar MD 08/18/2019 15:17 Electronically signed by Patrick Cuellar MD in [place] 08/18/2019 15:17
--- NOTE | 2019-08-19 19:36 | PC.NURSE ---
covid 19 test results negative. patient notified.
[2019-08-19 19:41] LABS: Covid-19 Nasal PCR Sendout Lex NOT DETECTED
--- NOTE | 2019-08-20 10:28 | PC.NURSE ---
Notified Beth RODGERS of negative COVID 19 results.
== END ==
PROVIDERS: Visit Provider Nurse Practitioner
DX: R06.02 Shortness of breath (principal); R52 Pain, unspecified
CPT/HCPCS: 71045

== ENCOUNTER → 2020-11-29 16:20 | Outpatient (CLI) | payer BC, SELFPAY ==
--- NOTE | 2020-11-29 16:25 | XR_ITS ---
PROCEDURE: XR ANKLE LT MIN 3V CLINICAL INDICATION: PAIN IN LT ANKLE AND JOINTS OF LT FOOT COMPARISON: No exams were available for comparison FINDINGS: No acute fractures or dislocations. The ankle mortise is intact and the lateral clear space is preserved. Calcaneal spur is noted. No significant soft tissue abnormality is noted. IMPRESSION: No acute findings. Dictated by: Malina Brown 11/29/2020 17:00 Malina Brown in [place] 11/29/2020 17:00
--- NOTE | 2020-11-29 16:25 | XR_ITS ---
PROCEDURE: XR ANKLE RT MIN 3V CLINICAL INDICATION: PAIN IN RT ANKLE AND JOINTS OF RT FOOT COMPARISON: No exams were available for comparison FINDINGS: No acute fractures or dislocations. Bone density is normal. The ankle mortise is congruent and the lateral clear space is preserved. Calcaneal spur is noted. No significant soft tissue abnormality. IMPRESSION: No acute findings. Dictated by: Malina Brown 11/29/2020 17:00 Malina Brown in [place] 11/29/2020 17:00
== END ==
PROVIDERS: PCP Family Medicine; Visit Provider Family Medicine
DX: M25.572 Pain in left ankle and joints of left foot (principal); M25.571 Pain in right ankle and joints of right foot
CPT/HCPCS: 73610